=== PATIENT | male | born 1960 | race African-American/Black ===

== ENCOUNTER 2019-05-10 09:07 | Emergency (ER) | payer BC ==
[2019-05-10] MEDS ORDERED: DOXYCYCLINE HYCLATE 100 MG TABLET PO ONE (11:50)
--- NOTE | 2019-05-10 11:50 | ER Document Report ---
ED Head/Face/Scalp Injury - General Chief Complaint: Skin Problem Stated Complaint: FACIAL SWELLING Time Seen by Provider: 05/10/19 11:45 Notes: CHIEF COMPLAINT: Swelling and redness to right forehead for 24 hours HPI: 58-year-old male presenting to the emergency department complaining of redness and swelling to the right forehead with some discharge that began yesterday. Patient states he does go into the [place] frequently, does not have itching or pain to the area but believes he may have been bitten by something that caused this infection area. No fever. ROS: See HPI - all other systems were reviewed and are otherwise negative Constitutional: no fever Eyes: no drainage, no blurred vision ENT: no runny nose, no sore throat Integumentary: + rash Allergy: no hives Musculoskeletal: no extremity pain or swelling Neurological: no numbness/tingling, no weakness MEDICATIONS: I agree with the patient medications as charted by the RN. ALLERGIES: I agree with the allergies as charted by the RN. PAST MEDICAL HISTORY/PAST SURGICAL HISTORY: Reviewed and agree as charted by RN. SOCIAL HISTORY: Reviewed and agree as charted by RN. FAMILY HISTORY: No significant familial comorbid conditions directly related to patient complaint EXAM: Reviewed vital signs as charted by RN. CONSTITUTIONAL: Alert and oriented and responds appropriately to questions. Well-appearing; well-nourished HEAD: Normocephalic; atraumatic EYES: PERRL; Conjunctivae clear, sclerae non-icteric ENT: normal nose; no rhinorrhea; moist mucous membranes; pharynx without lesions noted, no uvula edema or deviation, no tonsillar hypertrophy, phonation normal NECK: Supple without meningismus; non-tender; no cervical lymphadenopathy, no masses CARD: symmetric distal pulses RESP: Normal chest excursion without splinting or tachypnea ABD/GI: soft, non-tender. BACK: The back appears normal and is non-tender to palpation EXT: Normal ROM in all joints; non-tender to palpation; no cyanosis, no effusions, no edema. There is some redness that is raised to the right forehead measuring 7 cm x 4 cm. Small open area with serous drainage in the center but no fluctuant areas. No petechia. No purpura. No vesicles SKIN: Normal color for age and race; warm; dry; good turgor; no acute lesions noted NEURO: Moves all extremities equally; Motor and sensory function intact PSYCH: The patient's mood and manner are appropriate. Grooming and personal hygiene are appropriate. MDM: 58-year-old male with possibly an early cellulitis on the forehead no induration or fluctuant areas suggesting abscess. Will place patient on doxycycline to cover MRSA as he states that he has history of skin infections like this. TRAVEL OUTSIDE OF THE [place] IN LAST 30 DAYS: No - Related Data Allergies/Adverse Reactions: No Known Allergies Allergy (Verified 05/10/19 11:00) Past Medical History - Social History Smoking Status: Never Smoker Family History: Reviewed & Not Pertinent Patient has suicidal ideation: No Patient has homicidal ideation: No Pulmonary Medical History: Reports: Hx Pneumonia - Immunizations Hx Diphtheria, Pertussis, Tetanus Vaccination: Yes Physical Exam - Vital signs Vitals: Temp Pulse Resp BP Pulse Ox 97.8 F 84 16 174/99 H 99 05/10/19 09:13 05/10/19 09:13 05/10/19 09:13 05/10/19 09:13 05/10/19 09:13 Course - Vital Signs Vital signs: Temp Pulse Resp BP Pulse Ox 97.8 F 84 16 169/93 H 100 05/10/19 09:13 05/10/19 09:13 05/10/19 09:13 05/10/19 10:01 05/10/19 10:01 Discharge - Discharge Clinical Impression: Insect bite, infected Qualifiers: Encounter type: initial encounter Qualified Code(s): W57.XXXA - Bitten or stung by nonvenomous insect and other nonvenomous arthropods, initial encounter Condition: Stable Disposition: HOME, SELF-CARE Additional Instructions: Continue cool compresses. Take the antibiotics as prescribed. Follow-up with your primary care provider for reevaluation of the area as needed Prescriptions: Doxycycline Monohydrate 100 mg PO BID #20 capsule
[2019-05-10 12:12] VITALS: BP 157/95
== END 2019-05-10 12:21 | disposition home or self-care (01) ==
LOC: ER 09:07
DX: B99.9 Unspecified infectious disease (principal); T14.8XXA Other injury of unspecified body region, initial encounter; W57.XXXA Bitten or stung by nonvenomous insect and other nonvenomous arthropods, initial encounter
CPT/HCPCS: 99283